=== PATIENT | female | born 1950 | race Caucasian/White ===

== ENCOUNTER 2016-07-29 10:10 | Day surgery (SDC) | payer BC ==
[~2016-07-29] VITALS: Ht 154.9 cm; Wt 66.0 kg
[~2016-07-29 10:10] MED LIST: ACID CONTROL150 MG PO; ADVIL PM1 TABLET PO; ALLEGRA60 MG PO; ALPRAZOLAM0.5 MG PO; AROMASIN25 MG PO; CALCIUM 500 MG1 EAC1 PO; CALCIUM 500 MG1 EACH PO; CALCIUM 600 +1 EAC2 PO; CALCIUM 600 MG1 EAC1 PO; CETIRIZINE HCL10 M2 PO; DAILY VALUE1 EACH PO; ESCITALOPRAM OX10 MG PO; FLONASE16 G1 BOTH NARES; FLUTICASONE PRO16 GM BOTH NARES; HAIR, SKIN & N1 EAC1 PO; HAIR, SKIN AND1 EACH PO; LEXAPRO20 MG PO; MEDROXYPROGESTER5 MG PO; MULTIVITAMIN1 EAC2 PO; NEURONTIN100 MG PO; PRILOSEC40 MG PO; REFLUX MED; SEROQUEL100 MG PO; SEROQUEL50 MG PO; SYNTHROID25 MCG PO; TRANSDERM-SCO1 PATCH TD; TYLENOL EXTRA500 MG PO; VITAMIN D31000 UNI2 PO; XANAX0.5 MG PO; ZYRTEC10 M2 PO
[2016-07-29 10:37] VITALS: BP 107/69
[2016-07-29 11:07] LABS: HEMATOCRIT 39.6 % (36.0-46.0); MCV 91.5 FL (83-99)
[2016-07-29 17:40] VITALS: BP 125/67
[2016-07-29 21:13] VITALS: BP 117/58
[2016-07-30 00:30] VITALS: BP 110/54
[2016-07-30 04:00] VITALS: BP 105/58; BP 106/52
[2016-07-30 07:05] VITALS: BP 99/54
[2016-07-30 11:30] VITALS: BP 116/58
== END 2016-07-30 14:35 | disposition home or self-care (01) ==
LOC: SDC 10:10 → 2SOUTH 15:45 → 2EAST 17:35
PROVIDERS: Surgery Plastic and Reconstructive Surgery
DX: N65.0 Deformity of reconstructed breast (principal); T85.49XS Other mechanical complication of breast prosthesis and implant, sequela; Z90.11 Acquired absence of right breast and nipple; Z85.3 Personal history of malignant neoplasm of breast; Z85.71 Personal history of Hodgkin lymphoma; Z92.21 Personal history of antineoplastic chemotherapy; K21.9 Gastro-esophageal reflux disease without esophagitis; E03.9 Hypothyroidism, unspecified; Z87.891 Personal history of nicotine dependence; Z86.19 Personal history of other infectious and parasitic diseases
CPT/HCPCS: 85014; 85018; C1789; G0378; J0690; J1100; J1170; J2250; J2405; J3010; J7050

== ENCOUNTER 2016-08-19 11:56 | Day surgery (SDC) | payer BC ==
[~2016-08-19] VITALS: Ht 154.9 cm; Wt 65.7 kg
[2016-08-19 12:50] VITALS: BP 108/65
[2016-08-19 18:05] VITALS: BP 116/63
[2016-08-19 19:00] VITALS: BP 130/69
== END 2016-08-19 19:10 | disposition home or self-care (01) ==
LOC: SDC 11:56
DX: T85.898A Other specified complication of other internal prosthetic devices, implants and grafts, initial encounter (principal); Y83.1 Surgical operation with implant of artificial internal device as the cause of abnormal reaction of the patient, or of later complication, without mention of misadventure at the time of the procedure; Z85.3 Personal history of malignant neoplasm of breast; Z85.71 Personal history of Hodgkin lymphoma; Z92.21 Personal history of antineoplastic chemotherapy; K21.9 Gastro-esophageal reflux disease without esophagitis; E03.9 Hypothyroidism, unspecified; Z87.898 Personal history of other specified conditions; F41.9 Anxiety disorder, unspecified; Z87.891 Personal history of nicotine dependence; Z86.19 Personal history of other infectious and parasitic diseases
CPT/HCPCS: C1789; J0330; J0690; J1100; J1170; J2405; J3010